=== PATIENT | male | born 1935 | race Caucasian/White ===

== ENCOUNTER 2016-08-27 07:32 | Day surgery (SDC) | payer MEDICARE, OTHER ==
[2016-08-19 11:12] LABS: BASOPHILS 0.8 %; BASOPHILS ABSOLUTE 0.06 10/3/uL (0.0-0.16); EOSINOPHILS 4.2 %; EOSINOPHILS ABSOLUTE 0.31 10/3/uL (0.0-0.53); HEMATOCRIT 44.6 % (40.0-51.0); HEMOGLOBIN 15.3 g/dL (13.6-17.8); IMMATURE GRANULOCYTES 0.1 %; IMMATURE GRANULOCYTES ABSOLUTE 0.01 10/3/uL (0.0-0.11); LYMPHOCYTES 21.6 %; LYMPHOCYTES ABSOLUTE 1.59 10/3/uL (0.67-4.30); MEAN CORPUS HGB CONC 34.3 g/dL (32.0-36.0); MEAN CORPUSCULAR VOLUME 93.3 fL (80-100); MEAN PLATELET VOLUME 10.3 fL (9.2-13.0); MONOCYTES ABSOLUTE 0.66 10/3/uL (0.21-1.20); NEUTROPHILS 64.3 %; NEUTROPHILS ABSOLUTE 4.74 10/3/uL (2.02-8.40); PLATELET COUNT 169 10/3/uL (150-400); RBC DISTRIBUTION WIDTH 12.4 % (12.0-16.0); RED CELL COUNT 4.78 10/6/uL (4.7-6.1); WHITE BLOOD CELLS 7.4 10/3/uL (4.5-10.5)
[2016-08-19 11:17] LABS: MANUAL DIFF NO %
[2016-08-19 11:34] LABS: A/G RATIO 1.6 (0.7-1.9); ALBUMIN 4.2 G/DL (3.5-5.0); ALKALINE PHOSPHATASE 62 U/L (45-117); BUN (BLOOD UREA NITROGEN) 22 MG/DL (6-23); CALCIUM, SERUM 9.2 MG/DL (8.5-10.4); CHLORIDE, SERUM 107 MMOL/L (96-112); CO2 (CARBON DIOXIDE) 28 MMOL/L (24-34); CREATININE 1.11 MG/DL (0.70-1.30); GFR AFRICAN AMERICAN 73 ML/MIN (>=60); GFR NON AFRICAN AMERICAN 63 ML/MIN (>=60); GLOBULIN 2.7 G/DL (2.5-4.1); GLUCOSE, SERUM 97 MG/DL (60-99); POTASSIUM, SERUM 4.3 MMOL/L (3.5-5.3); SGOT(AST) 25 U/L (5-40); SGPT(ALT) 38 U/L (5-65); SODIUM, SERUM 143 MMOL/L (135-148); TOTAL BILIRUBIN 1.6 MG/DL (0-1.2); TOTAL PROTEIN 6.9 G/DL (6.0-8.5)
--- NOTE | ~2016-08-27 | PREOPHP ---
PreOp History and Physical [place] [place] [place]. [address] NAME: ASHISH HARMON : 37 STATUS : PRE [facility] PAT#: [id number] AGE: 80 ADM/REG DATE : MR#: [id number] REPORT SERV DATE: 08/27/16 DICTATED BY: ERIK TURNER III DATE: 07/23/16 REPORT STATUS : Draft TRANSCRIBED BY: MODZafar DATE: 07/23/16 HISTORY OF PRESENT ILLNESS: This is a 80-year-old male who comes to the operating room for wound repair of a symptomatic right inguinal hernia. This is a recurrent right inguinal hernia. The patient complains of a tender mass in his right groin. He has had no nausea, vomiting, or obstructive symptoms. He comes now for open repair of recurrent right inguinal hernia. The patient previously had a laparoscopic repair of this hernia. PAST MEDICAL HISTORY: 1. Hypertension. 2. Coronary artery disease. 3. History of myocardial infarction. 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 MEDICATIONS: Atenolol, allopurinol, aspirin, atorvastatin, eplerenone, losartan, and Zetia. SOCIAL HISTORY: The patient has a history of alcohol use. He has a previous history of tobacco use. FAMILY HISTORY: Positive for heart disease. ALLERGIES: NONE. REVIEW OF SYSTEMS: The patient's 14-point review of systems otherwise unremarkable. PHYSICAL EXAMINATION: GENERAL: This is a male, in no acute distress. He is alert and oriented x3. VITAL SIGNS: Blood pressure 108/67, pulse 57, and temperature 98.2. HEENT: Unremarkable. Cranial nerves 2 through 12 were normal. LUNGS: Clear. CARDIAC: Normal. ABDOMEN: Soft, nontender. PELVIS: In the right groin is a moderate-sized inguinal hernia. It is reducible. The left groin is normal. EXTREMITIES: Normal. ASSESSMENT: 1. A 80-year-old male with symptomatic recurrent right inguinal hernia. 2. Hypertension. 3. Coronary artery disease. 4. History of myocardial infarction. PLAN: The patient comes to the operating room for open right inguinal hernia repair. This procedure, the risks, benefits, alternatives, including but not limited to the risk of bleeding, infection, pain, swelling, scarring, deformity to the area, seroma formation, hematoma formation, recurrence of the hernia, nerve injury, chronic paresthesia, pain in the PreOp History and Physical [address] [address] NAME: ASHISH HARMON : 37 STATUS : PRE [facility] PAT#: [id number] AGE: 80 ADM/REG DATE : MR#: [id number] REPORT SERV DATE: 08/27/16 DICTATED BY: ERIK TURNER III DATE: 07/23/16 REPORT STATUS : Draft TRANSCRIBED BY: SHANI DATE: 07/23/16 thigh, scrotum, or groin, chronic neuralgia or neuroma, and unforeseen complications including deep venous thrombosis, pulmonary embolus, myocardial infarction, stroke, pneumonia, and , have been explained to the patient prior to surgery. His questions have been answered. He understands the risks and agrees to surgery as planned. RHShiloh/SHANI Erik Turner III, M.D. / [id number]
--- NOTE | ~2016-08-27 | OP ---
Record Of Operation [facility] [address] [place]. [address] NAME: ASHISH HARMON : 37 STATUS : REG [facility] [place] PAT#: [id number] AGE: 80 ADM/REG DATE : 08/27/16 MR#: [id number] REPORT SERV DATE: 08/27/16 DICTATED BY: ERIK QUESADA III DATE: 08/27/16 REPORT STATUS : Draft TRANSCRIBED BY: SHANI DATE: 08/27/16 DATE OF PROCEDURE: 08/27/2016 PREOPERATIVE DIAGNOSIS: Symptomatic recurrent right inguinal hernia. POSTOPERATIVE DIAGNOSIS: Symptomatic recurrent right inguinal hernia, recurrent indirect right inguinal hernia. PROCEDURE: Open Jennie tension-free repair of right inguinal hernia with Prolene mesh plug. ANESTHESIA: General with intubation. COMPLICATIONS: None. ESTIMATED BLOOD LOSS: Less than 5 mL. SPECIMENS: None. DRAINS: None. LAP AND SPONGE COUNT: Correct x3. BRIEF HISTORY: This 80-year-old male presented with a symptomatic recurrent right inguinal hernia. It was felt that open repair of this hernia was indicated. This procedure, the risks, benefits, and alternatives, including not limited to the risk of bleeding, infection, pain, swelling, scar or deformity of the area, seroma formation or hematoma formation, recurrence of the hernia, nerve injury, chronic paresthesia, pain in the thigh, scrotum, or groin, chronic neuralgia or neuroma, and unforeseen complications including deep venous thrombosis, pulmonary embolus, myocardial infarction, stroke, pneumonia, and , were explained to the patient prior to surgery. His questions were answered. He understood the risks and agreed to the surgery as planned. PROCEDURE IN DETAIL: After being appropriately identified and after discussing the risks of surgery with him again in the preoperative area, and after identifying the hernia with him in the preoperative area, the patient was taken to the operating room and placed in the supine position on the operating room table. General anesthesia was administered. He was intubated without difficulty. The abdomen and groins were prepped and draped sterilely in the usual fashion. After an appropriate "time-out" per JCAHO standards, a small oblique incision was made in the right groin from the pubic tubercle medially towards the anterior superior iliac spine laterally. The incision was continued through the subcutaneous tissue. Hemostasis was controlled with electrocautery. There was extensive scarring in the area. The incision was continued down to the external oblique fascia. This fascia had been split by the hernia. Using sharp dissection, the external oblique fascia was opened along the direction of its fibers, so as to open the external inguinal ring. The underlying ilioinguinal and genitofemoral nerves were identified and carefully isolated and protected Record Of Operation [facility] [address] [place]. [address] NAME: ASHISH HARMON : 37 STATUS : REG [facility] [place] PAT#: [id number] AGE: 80 ADM/REG DATE : 08/27/16 MR#: [id number] REPORT SERV DATE: 08/27/16 DICTATED BY: ERIK QUESADA III DATE: 08/27/16 REPORT STATUS : Draft TRANSCRIBED BY: SHANI DATE: 08/27/16 to one side. There was extensive scarring in the area. Using sharp dissection, the spermatic cord and its contents were mobilized from the floor of the canal. There was noted to be the indirect hernia sac dissecting along the spermatic cord. Using sharp dissection, this hernia sac was dissected down to the internal ring. It was from the spermatic cord. The hernia sac was opened and the abdominal contents reduced. The hernia sac was ligated with a 2-0 silk pursestring and doubly ligated with 2-0 silk suture. It was then inverted into the abdominal cavity. A Prolene mesh plug was then placed through the defect at the internal ring for closure of the defect. The mesh was secured to the fascial edges with interrupted 2-0 silk sutures. This resulted in good anchoring of the plug around the defect. The fascia anterior to the plug was then closed with interrupted 3-0 silk sutures which were placed between shelving edge of the inguinal ligament laterally and the internal oblique and transversalis fascia medially. This resulted in good closure of this defect in the floor of the canal. A small finger could be placed through the internal ring so that the spermatic vessels have not been unduly tightened or narrowed. Hemostasis was assured. Great care was taken not to encroach upon or injure the spermatic cord vessels. The external oblique fascia was closed with running 2-0 silk suture. The subcutaneous tissue was closed with running 3-0 chromic suture. The skin was closed with running subcuticular 4-0 Monocryl stitch. The incision was injected with 0.5% Marcaine. Dressings were applied. Anesthesia was reversed. The patient was taken to the recovery room in stable condition. He tolerated the procedure well. His family was informed of the results of surgery. The patient will be discharged when stable and comfortable and able to void and ambulate. His family was advised that he should keep the wound clean and dry for 48 hours and that he should not drive for three to four days after surgery or use narcotics and that he should resume his usual medications and he should not perform any heavy lifting for four to five weeks. He was asked to return in two weeks for followup or sooner if any fever, chills, wound drainage, or other problems prior to that time. He was given a prescription for Percocet 7.5 one t.i.d., #12, as needed for pain, which he was advised not to use while driving. RHJ/SHANI Erik Quesada III, M.D. / [id number] CC: Brittaney Mederos III, II, M.D.
[~2016-08-27 07:32] MED LIST: ASAB PO; ATEN25 PO; COZAAR100 MG PO; LIPITOR80 MG PO; SPIRO25 PO
== END 2016-08-27 23:59 | disposition home or self-care (01) ==
LOC: SDC 07:32
PROVIDERS: Surgery
PROC: 0YU50JZ Supplement Right Inguinal Region with Synthetic Substitute, Open Approach (ICD-10-PCS; principal; 2016-08-27 08:45)
DX: K40.91 Unilateral inguinal hernia, without obstruction or gangrene, recurrent (principal); I10 Essential (primary) hypertension; I25.10 Atherosclerotic heart disease of native coronary artery without angina pectoris; I25.2 Old myocardial infarction; E78.5 Hyperlipidemia, unspecified; Z95.5 Presence of coronary angioplasty implant and graft; Z87.891 Personal history of nicotine dependence; Z90.89 Acquired absence of other organs; Z98.890 Other specified postprocedural states
CPT/HCPCS: 71020; 80053; 85025; 93005; C1781; J0690; J1170; J2270; J2405; J2710; J3010